=== PATIENT | male | born 1965 | race Caucasian/White ===

== ENCOUNTER 2017-01-26 17:45 | Emergency (ER) | payer MEDICAID ==
[~2017-01-26 17:45] MED LIST: Aspirin 81 MG Tab.Chew PO ONE; Levofloxacin 500 MG Tab PO ONE
[2017-01-26 17:51] VITALS: BP 146/94
[2017-01-26] MEDS ORDERED: Albuterol/Ipratropium 3.0-0.5 MG/3 ML Neb Soln ONE (18:23)
[2017-01-26 18:34] LABS: CHLORIDE,CL 95 mEq/L (98-106); SODIUM,NA 135 mEq/L (136-145)
--- NOTE | 2017-01-26 18:34 | EDM.PDOC ---
ED HISTORY OF PRESENT ILLNESS - General Chief Complaint: Chest Pain Stated Complaint: CHEST PAIN Time Seen by Provider: 01/26/17 17:48 Source of Information: Reports: Patient History Limitations: Reports: No limitations - History of Present Illness INITIAL COMMENTS - FREE TEXT/NARRATIVE: Addison is a 51 yo male who presents to the ER with complaints of chest pain. - Related Data Allergies/ADRs: Allergies Allergy/AdvReac Type Severity Reaction Status Date / Time No Known Allergies Allergy Verified 01/26/17 17:45 Home Meds: Home Meds metFORMIN [Glucophage] 1,000 mg PO BID 01/26/17 [History] Past Medical History Cardiovascular History: Reports: High cholesterol, Hypertension Gastrointestinal History: Reports: Hiatal hernia Endocrine/Metabolic History: Reports: Diabetes, type II - Infectious Disease History Infectious Disease History: Reports: Hepatitis C Social & Family History - Tobacco Use Smoking Status *Q: Current Every Day Smoker Years of Tobacco use: 40 Packs/Tins Daily: 3 - Caffeine Use Caffeine Use: Reports: Energy drinks, Soda - Recreational Drug Use Recreational Drug Use: Yes Recreational Drug Type: Reports: Marijuana/Hashish Recreational Drug Use Frequency: Weekly Course - Vital Signs Last Recorded V/S: Last Vital Signs Temp 97.8 F 01/26/17 17:46 Pulse 109 H 01/26/17 17:46 Resp 20 01/26/17 17:46 BP 146/94 H 01/26/17 17:46 Pulse Ox 95 01/26/17 17:46 - Orders/Labs/Meds Orders: Active Orders 24 hr Category Date Time Status Chest 2V [CR] Stat Exams 01/26/17 18:06 Taken C-REACTIVE PROTEIN [CHEM] Stat Lab 01/26/17 18:05 Received COMPREHENSIVE METABOLIC PN,CMP [CHEM] Stat Lab 01/26/17 18:05 Received CREATINE KINASE,CK [CHEM] Stat Lab 01/26/17 18:05 Received D-DIMER QUANTITATIVE [COAG] Stat Lab 01/26/17 18:05 Received INR,PT,PROTHROMBIN TIME [COAG] Stat Lab 01/26/17 18:05 Received LACTATE DEHYDROGENASE,LDH [CHEM] Stat Lab 01/26/17 18:05 Received TROPONIN I [CHEM] Stat Lab 01/26/17 18:05 Received Labs: Laboratory Tests 01/26/17 Range/Units 18:05 WBC 10.2 H (5.0-10.0) 10^3/uL RBC 5.29 (4.50-6.00) 10^6/uL Hgb 16.1 (14.0-18.0) g/dL Hct 48.5 (40.0-54.0) % MCV 91.7 (82.0-94.0) fL MCH 30.4 (27.0-32.0) pg MCHC 33.2 (33.0-38.0) g/dL RDW Coeff of Emani 12.8 (11.0-15.0) % Plt Count 240 (150-400) 10^3/uL MPV 9.8 fL Meds: Medications Discontinued Medications Generic Name Dose Route Start Last Admin Trade Name Freq PRN Reason Stop Dose Admin Aspirin 324 mg 01/26/17 17:45 Aspirin PO 01/26/17 17:46 ONETIME ONE Departure - Departure Forms: ED Department Discharge - My Orders Last 24 Hours: My Active Orders 01/26/17 18:05 C-REACTIVE PROTEIN [CHEM] Stat COMPREHENSIVE METABOLIC PN,CMP [CHEM] Stat CREATINE KINASE,CK [CHEM] Stat D-DIMER QUANTITATIVE [COAG] Stat INR,PT,PROTHROMBIN TIME [COAG] Stat LACTATE DEHYDROGENASE,LDH [CHEM] Stat TROPONIN I [CHEM] Stat 01/26/17 18:06 Chest 2V [CR] Stat - Assessment/Plan Last 24 Hours: My Active Orders 01/26/17 18:05 C-REACTIVE PROTEIN [CHEM] Stat COMPREHENSIVE METABOLIC PN,CMP [CHEM] Stat CREATINE KINASE,CK [CHEM] Stat D-DIMER QUANTITATIVE [COAG] Stat INR,PT,PROTHROMBIN TIME [COAG] Stat LACTATE DEHYDROGENASE,LDH [CHEM] Stat TROPONIN I [CHEM] Stat 01/26/17 18:06 Chest 2V [CR] Stat
[2017-01-26] MEDS ORDERED: Albuterol/Ipratropium 3.0-0.5 MG/3 ML Neb Soln NEB ONE (18:36)
--- NOTE | 2017-01-26 18:47 | EDM.PDOC ---
ED HISTORY OF PRESENT ILLNESS - General Chief Complaint: Chest Pain Stated Complaint: CHEST PAIN Time Seen by Provider: 01/26/17 17:48 Source of Information: Reports: Patient History Limitations: Reports: No limitations - History of Present Illness INITIAL COMMENTS - FREE TEXT/NARRATIVE: Addison is a 51 yo male who presents to the ER with complaints of shortness of breath and chest pain. States it has been gradually getting worse over the last few weeks but admits it has been ongoing for months. States he is from [place] and drove up to [place] to crop pick[place] a motorcycle. States he takes medications for diabetes, high blood pressure and high cholesterol. Admits to not being compliant with his medications and sugars are usually in the 400-500's. He states the chest pain is located anteriorly across the right side of his chest. Denies any radiation of pain. States he smokes 2 packs of cigarettes per day which hasn't been helping with his shortness of breath. Has a history of sleep apnea but didn't bring a machine with him. Timing/Duration: Reports: Gradual onset, Unsure Severity: moderate Location, General: Reports: chest Quality: Reports: Ache, Dull Improves with: Reports: Rest Associated Symptoms (General): Reports: chest pain, cough, cough w sputum, shortness of breath. Denies: fever/chills, nausea/vomiting - Related Data Allergies/ADRs: Allergies Allergy/AdvReac Type Severity Reaction Status Date / Time No Known Allergies Allergy Verified 01/26/17 17:45 Home Meds: Home Meds metFORMIN [Glucophage] 1,000 mg PO BID 01/26/17 [History] Past Medical History Cardiovascular History: Reports: High cholesterol, Hypertension Gastrointestinal History: Reports: Hiatal hernia Endocrine/Metabolic History: Reports: Diabetes, type II - Infectious Disease History Infectious Disease History: Reports: Hepatitis C Social & Family History - Tobacco Use Smoking Status *Q: Current Every Day Smoker Years of Tobacco use: 40 Packs/Tins Daily: 3 - Caffeine Use Caffeine Use: Reports: Energy drinks, Soda - Recreational Drug Use Recreational Drug Use: Yes Recreational Drug Type: Reports: Marijuana/Hashish Recreational Drug Use Frequency: Weekly ED ROS GENERAL - Review of Systems Review Of Systems: See Below Constitutional: Denies: fever, chills HEENT: Reports: No symptoms Respiratory: Reports: Shortness of Breath, Wheezing, Cough Cardiovascular: Reports: Chest pain, Blood pressure problem, Dyspnea on exertion , Edema GI/Abdominal: Reports: No symptoms : Reports: no symptoms Musculoskeletal: Reports: no symptoms Neurological: Reports: No Symptoms Psychiatric: Reports: No symptoms ED EXAM, GENERAL - Physical Exam Exam: See Below Exam Limited By: No limitations General Appearance: alert, no apparent distress Ears: normal external exam, normal canal, hearing grossly normal, normal TMs Nose: normal inspection, normal mucosa, no blood Throat/Mouth: Normal inspection, Normal lips, Normal teeth, Normal gums, Normal oropharynx, Normal voice, No airway compromise Head: atraumatic, normocephalic Neck: normal inspection, supple, full range of motion Respiratory/Chest: no accessory muscle use, chest non-tender, decreased breath sounds, prolonged expiration. No: splinting Cardiovascular: normal peripheral pulses, regular rate, rhythm, no gallop, no JVD, no murmur GI/Abdominal: normal bowel sounds, soft, non tender, no organomegaly, no abnormal bruit, other (obese, large pannus, abrasions to abdomen from belt buckle) Extremities: pedal edema (scant bilateral), other (stasis dermatitis bilateral lower extremities) Neurological: alert, oriented, no motor/sensory deficits Psychiatric: normal affect, normal mood Skin Exam: Warm, Dry, Intact, Normal color, No rash EKG INTERPRETATION EKG Date: 01/26/17 Rhythm: other (sinus tachycardia) Rate (beats/min): 105 Comparison: NA - no prior EKG Course - Vital Signs Last Recorded V/S: Last Vital Signs Temp 97.8 F 01/26/17 17:46 Pulse 109 H 01/26/17 17:46 Resp 20 01/26/17 17:46 BP 146/94 H 01/26/17 17:46 Pulse Ox 95 01/26/17 17:46 - Orders/Labs/Meds Orders: Active Orders 24 hr Category Date Time Status RT Aerosol Therapy [RC] ASDIRECTED Care 01/26/17 18:36 Active Chest 2V [CR] Stat Exams 01/26/17 18:06 Taken Labs: Laboratory Tests 01/26/17 01/26/17 01/26/17 Range/Units 18:05 18:05 18:05 WBC 10.2 H (5.0-10.0) 10^3/uL RBC 5.29 (4.50-6.00) 10^6/uL Hgb 16.1 (14.0-18.0) g/dL Hct 48.5 (40.0-54.0) % MCV 91.7 (82.0-94.0) fL MCH 30.4 (27.0-32.0) pg MCHC 33.2 (33.0-38.0) g/dL RDW Coeff of Emani 12.8 (11.0-15.0) % Plt Count 240 (150-400) 10^3/uL MPV 9.8 fL PT 11.2 (9.7-12.3) SEC INR 1.04 (0.92-1.18) D-Dimer, Quantitative 0.34 (0.00-0.50) Sodium 135 L (136-145) mEq/L Potassium 4.2 (3.5-5.0) mEq/L Chloride 95 L (98-106) mEq/L Carbon Dioxide 35 H (21-32) mmol/L BUN 12 (7-18) mg/dL Creatinine 0.9 (0.7-1.3) mg/dL Est Cr Clr Drug Dosing 113.45 mL/min Estimated GFR (MDRD) > 60 (>=60) mL/min Glucose 326 H* (75-99) mg/dL Calcium 9.1 (8.4-10.1) mg/dL Total Bilirubin 0.9 (0.0-1.0) mg/dL AST 71 H (15-37) U/L ALT 130 H (12-78) U/L Alkaline Phosphatase 89 (46-116) U/L Lactate Dehydrogenase 215 H (100-190) U/L Creatine Kinase 162 (35-232) U/L Troponin I < 0.017 (0.00-0.06) ng/mL C-Reactive Protein 2.1 H (0.2-0.8) mg/dL Total Protein 8.3 H (6.4-8.2) g/dL Albumin 3.8 (3.4-5.0) g/dL Meds: Medications Discontinued Medications Generic Name Dose Route Start Last Admin Trade Name Freq PRN Reason Stop Dose Admin Albuterol/Ipratropium Confirm 01/26/17 18:23 01/26/17 18:37 Duoneb 3.0-0.5 Mg/3 Ml Administered 01/26/17 18:24 Not Given Dose 3 ml .ROUTE .STK-MED ONE Albuterol/Ipratropium 3 ml 01/26/17 18:36 01/26/17 18:38 Duoneb 3.0-0.5 Mg/3 Ml NEB 01/26/17 18:37 3 ml ONETIME ONE Administration Aspirin 324 mg 01/26/17 17:45 01/26/17 17:50 Aspirin PO 01/26/17 17:46 324 mg ONETIME ONE Administration Departure - Departure Time of Disposition: 18:56 Disposition: Home, Self-Care 01 Clinical Impression: Bronchopneumonia Instructions: Nonspecific Chest Pain, [id number], Acute Bronchitis, Shortness of Breath Forms: ED Department Discharge Additional Instructions: 1) Levaquin 500mg daily for 10 days. 2) Use Symbicort as directed and discussed. 3) Encourage seeing your primary upon return and consider life style changes and review of medications. Strongly encourage smoking cessation. 4) If symptoms worsen or any concerns at all, please return to ER for reevaluation. - Problem List & Annotations (1) Bronchopneumonia SNOMED Code(s): 606937942 Code(s): J18.0 - BRONCHOPNEUMONIA, UNSPECIFIED ORGANISM Status: Acute Current Visit: Yes - Problem List Review Problem List Initiated/Reviewed/Updated: Yes - My Orders Last 24 Hours: My Active Orders 01/26/17 18:06 Chest 2V [CR] Stat 01/26/17 18:36 RT Aerosol Therapy [RC] ASDIRECTED - Assessment/Plan Last 24 Hours: My Active Orders 01/26/17 18:06 Chest 2V [CR] Stat 01/26/17 18:36 RT Aerosol Therapy [RC] ASDIRECTED Plan: Addison was given a duoneb in the ER which improved his 02 saturation to 99%. Discussed laboratory findings and no sign of cardiac involvement. D-dimer was normal as well. Will treat with antibiotic therapy at this time.
[2017-01-26] MEDS ORDERED: Take Home: Levofloxacin 500 MG Tab, 1 Tab Pack PO ONE (18:57)
[2017-01-26] MEDS ORDERED: cefTRIAXone 1 GM Vial IM ONE (18:59)
[2017-01-26] MEDS ORDERED: Lidocaine 1% 20 ML MDV INJECT ONE (18:59)
== END 2017-01-26 19:18 | disposition home or self-care (01) ==
LOC: CC.ED 17:45
DX: J18.0 Bronchopneumonia, unspecified organism (principal); E78.00 Pure hypercholesterolemia, unspecified; I10 Essential (primary) hypertension; F17.210 Nicotine dependence, cigarettes, uncomplicated; E11.9 Type 2 diabetes mellitus without complications
CPT/HCPCS: 36415; 71020; 80053; 82550; 83615; 84484; 85027; 85379; 85610; 86140; 96372; 99285; A9270; J0696